=== PATIENT | female | born 1985 | race Caucasian/White ===

== ENCOUNTER 2019-08-22 11:28 | Emergency (ER) | payer MEDICAID ==
[~2019-08-22] VITALS: Ht 162.6 cm; Wt 80.9 kg
[2019-08-22 11:30] VITALS: BP 114/82
--- NOTE | 2019-08-22 11:44 | NUR ---
PT C/O CONSISTANT LOWER ABDOMINAL PAIN SINCE LAST NIGHT RADIATING TO LOWER BACK BILATERAL. PT CURRENTLY ON THE 2ND DAY OF HER MENSTRUAL PERIOD. REPORTS VOMITING AND NAUSEA BUT DENIES DIARRHEA. TOOK IBUPROFEN AND NAPROXEN @ 930AM. PATIENT STATES PAIN OF 10/10 AT THIS TIME; VSS; PATIENT POSITIONED FOR COMFORT; HOB ELEVATED; BEDRAILS UP X1; BED DOWN. ER MD MADE AWARE OF PT STATUS.
[2019-08-22] MEDS ORDERED: MORPHINE SULFATE 4 MG/ML SYR IM ONE (11:50)
[2019-08-22] MEDS ORDERED: ONDANSETRON 4 MG ODT PO ONE (11:50)
[2019-08-22 12:25] VITALS: BP 111/75
--- NOTE | 2019-08-22 12:25 | NUR ---
Patient discharged with v/s stable. Written and verbal after care instructions given and explained. Patient alert, oriented and verbalized understanding of instructions. Ambulatory with steady gait. All questions addressed prior to discharge. ID band removed. Patient advised to follow up with PMD. Rx of [place], Zofran, Motrin, and Cipro given. Patient educated on indication of medication including possible reaction and side effects. Opportunity to ask questions provided and answered.
== END 2019-08-22 12:25 | disposition home or self-care (01) ==
LOC: MED 11:28
DX: N39.0 Urinary tract infection, site not specified (principal); Z88.0 Allergy status to penicillin
CPT/HCPCS: 81002; 81025; 96372; 99283; J2270; Q0162

== ENCOUNTER 2019-09-19 12:29 | Emergency (ER) | payer MEDICAID ==
[~2019-09-19] VITALS: Ht 162.6 cm; Wt 82.1 kg
[2019-09-19 12:37] VITALS: BP 104/70
[2019-09-19] MEDS: KETOROLAC 30 MG/ML VIAL IVP ONE (14:00)
[2019-09-19] MEDS: NACL 0.9% 1,000 ML IV ONE (14:00)
[2019-09-19 14:10] LABS: BASOPHILS % (AUTO) 0.4 % (0.0-2.0); EOSINOPHILS % (AUTO) 0.6 % (0.0-4.0); LYMPHOCYTES # (AUTO) 1.9 K/uL (2.5-16.5); LYMPHOCYTES % (AUTO) 32.7 % (20.5-51.1); MEAN CORPUSCULAR HEMOGLOBIN 31 pg (27-31); MEAN CORPUSCULAR HGB CONC 33 g/dL (33-37); MEAN CORPUSCULAR VOLUME 92.9 fL (80-94); MONOCYTES # (AUTO) 0.3 K/uL (0.8-1.0); MONOCYTES % (AUTO) 5.9 % (1.7-9.3); NEUTROPHILS # (AUTO) 3.5 K/uL (1.8-7.7); NEUTROPHILS % (AUTO) 60.4 % (42.2-75.2); PLATELET COUNT (AUTO) 225 K/uL (140-450); RED BLOOD CELL COUNT(AUTO) 3.87 MIL/uL (4.20-5.40); RED CELL DISTRIBUTION WIDTH 14.5 % (11.6-13.7); WHITE BLOOD COUNT (AUTO) 5.7 K/uL (4.8-10.8)
[2019-09-19 14:36] LABS: ALBUMIN 3.2 g/dL (3.4-5.0); ANION GAP 11.6 (8-16); CARBON DIOXIDE 27.4 mmol/L (21-32); TOTAL BILIRUBIN 0.3 mg/dL (0.0-1.0)
[2019-09-19 15:16] LABS: APPEARANCE,URINE HAZY (CLEAR); BILIRUBIN,URINE NEGATIVE (NEGATIVE); BLOOD, URINE 3+ (NEGATIVE); COLOR,URINE RED (YELLOW); LEUKOCYTE ESTERASE ,URINE TRACE (NEGATIVE); NITRITE, URINE NEGATIVE (NEGATIVE); PH,URINE 7.5 (5.0-9.0); UGLUCOSE NEGATIVE (NEGATIVE)
[2019-09-19] MEDS: MORPHINE SULFATE 4 MG/ML SYR IVP ONE (15:39)
[2019-09-19 16:48] LABS: RBC,URINE >100 /HPF (0-5)
[2019-09-19 16:49] VITALS: BP 105/56
== END 2019-09-19 16:43 | disposition home or self-care (01) ==
LOC: MED 12:29
DX: N39.0 Urinary tract infection, site not specified (principal); Z88.0 Allergy status to penicillin
CPT/HCPCS: 36415; 76856; 80053; 81001; 85025; 87086; 96374; 96375; 99284; J1885; J2270; J7030; Q0092